=== PATIENT | female | born 1985 | race Asian ===

== ENCOUNTER 2017-09-16 04:35 | Inpatient (IN) | payer SELFPAY ==
[~2017-09-16] VITALS: Ht 162.6 cm; Wt 64.4 kg
[2017-09-16] MEDS ORDERED: LACTATED RINGERS 1,000 ML IV SCH (05:28)
[2017-09-16] MEDS ORDERED: CITRIC ACID/SODIUM CITRATE 30 ML UDC PO ONE (05:30)
[2017-09-16 06:25] LABS: APPEARANCE,URINE HAZY (CLEAR); BILIRUBIN,URINE NEGATIVE (NEGATIVE); BLOOD, URINE NEGATIVE (NEGATIVE); COLOR,URINE YELLOW (YELLOW); LEUKOCYTE ESTERASE ,URINE NEGATIVE (NEGATIVE); NITRITE, URINE NEGATIVE (NEGATIVE); UGLUCOSE NEGATIVE (NEGATIVE)
[2017-09-16 06:28] LABS: BASOPHILS # (AUTO) 0.1 K/uL (0.00-0.22); BASOPHILS % (AUTO) 0.9 % (0.0-2.0); EOSINOPHILS # (AUTO) 0.1 K/uL (0-0.4); EOSINOPHILS % (AUTO) 0.8 % (0.0-4.0); HEMATOCRIT 37.4 % (36-48); HEMOGLOBIN 12.2 g/dL (12.0-16.0); LYMPHOCYTES # (AUTO) 1.4 K/uL (2.5-16.5); LYMPHOCYTES % (AUTO) 21.6 % (20.5-51.1); MEAN CORPUSCULAR HEMOGLOBIN 30 pg (27-31); MEAN CORPUSCULAR HGB CONC 33 g/dL (33-37); MEAN CORPUSCULAR VOLUME 91 fL (80-94); MONOCYTES # (AUTO) 0.5 K/uL (0.8-1.0); MONOCYTES % (AUTO) 7.2 % (1.7-9.3); NEUTROPHILS # (AUTO) 4.3 K/uL (1.8-7.7); NEUTROPHILS % (AUTO) 69.5 % (42.2-75.2); PLATELET COUNT (AUTO) 145 K/uL (140-450); RED BLOOD CELL COUNT(AUTO) 4.11 MIL/uL (4.20-5.40); WHITE BLOOD COUNT (AUTO) 6.4 K/uL (4.8-10.8)
[2017-09-16 06:43] LABS: ALBUMIN 2.7 g/dL (3.4-5.0); ANION GAP 11.5 (8-16); CARBON DIOXIDE 26.5 mmol/L (21-32); CREATININE 0.5 mg/dL (0.6-1.3); TOTAL BILIRUBIN 0.2 mg/dL (0.0-1.0)
[2017-09-16] MEDS ORDERED: OXYTOCIN 20 UNITS in LACTATED RINGERS 1,000 ML IV SCH ×2 (06:51→07:12)
[2017-09-16] MEDS ORDERED: oxyCODONE/APAP 5/325 MG 1 TAB TAB PO PRN (06:55)
[2017-09-16] MEDS ORDERED: TRIMETHOBENZAMIDE 200 MG/2 ML SYR IM PRN (06:55)
[2017-09-16] MEDS ORDERED: MEASLES, MUMPS, AND RUBELLA 1 VIAL SQVAC PRN (06:55)
[2017-09-16] MEDS ORDERED: IBUPROFEN 800 MG TAB PO PRN (06:55)
[2017-09-16] MEDS ORDERED: TEMAZEPAM 15 MG CAP PO PRN (06:55)
[2017-09-16] MEDS ORDERED: HYDROcodone/APAP 5/325 MG 1 TAB TAB PO PRN (06:55)
[2017-09-16] MEDS ORDERED: METHYLERGONOVINE 0.2 MG/ML AMP IM PRN (06:55)
[2017-09-16 06:56] LABS: RBC,URINE NONE SEEN /HPF (0-5)
[2017-09-16] MEDS ORDERED: TRIAMCINOLONE 40 MG/ML 5ML VIAL ONE (07:03)
[2017-09-16] MEDS ORDERED: OXYTOCIN 10 UNITS/ML VIAL ONE (07:03)
[2017-09-16] MEDS ORDERED: MORPHINE PRES FREE 10 MG/10 ML AMP IV ONE (07:10)
[2017-09-16] MEDS ORDERED: ceFAZolin 1,000 MG VIAL ONE (07:12)
[2017-09-16] MEDS ORDERED: CITRIC ACID/SODIUM CITRATE 30 ML UDC ONE (07:12)
[2017-09-16] MEDS ORDERED: NALOXONE 0.4 MG/ML VIAL IVP PRN ×2 (07:15)
[2017-09-16] MEDS ORDERED: ONDANSETRON 4 MG/2 ML VIAL IVP PRN (07:15)
[2017-09-16] MEDS ORDERED: diphenhydrAMINE 50 MG/ML VIAL IVP PRN (07:15)
[2017-09-16] MEDS ORDERED: METOCLOPRAMIDE 10 MG/2 ML INJ VIAL IVP SCH (07:30)
[2017-09-16 07:50] VITALS: BP 96/59
[2017-09-16] MEDS ORDERED: PREN-546 PO (07:53)
[2017-09-16] MEDS ORDERED: METF500T PO (07:54)
[2017-09-16] MEDS ORDERED: OXYTOCIN 20 UNITS/LR PREMIX 1,000 ML IV ONE (08:14)
[2017-09-16] MEDS ORDERED: diphenhydrAMINE 50 MG/ML VIAL ONE (08:14)
--- NOTE | 2017-09-16 09:54 | NUR ---
PATIENT HAS BEEN SCREENED AND CATEGORIZED LOW NUTRITION RISK. PATIENT WILL BE SEEN WITHIN 7 DAYS OF ADMISSION. 09/22/[address]
[2017-09-16] MEDS ORDERED: SODIUM PHOSPHATE 118 ML ENEM RC PRN (11:35)
[2017-09-16] MEDS ORDERED: INFLUENZA VIRUS VACCINE QUAD 0.5 ML SYR IMVAC SCH (11:35)
[2017-09-16] MEDS ORDERED: OXYTOCIN 10 UNITS in LACTATED RINGERS 1,000 ML IV SCH (14:41)
[2017-09-16] MEDS: OXYTOCIN 20 UNITS in LACTATED RINGERS 1,000 ML IV SCH ×2 (15:06→21:50)
[2017-09-17 06:08] LABS: BASOPHILS % (AUTO) 0.5 % (0.0-2.0); EOSINOPHILS % (AUTO) 0.6 % (0.0-4.0); HEMATOCRIT 36.3 % (36-48); HEMOGLOBIN 12.3 g/dL (12.0-16.0); LYMPHOCYTES # (AUTO) 0.8 K/uL (2.5-16.5); LYMPHOCYTES % (AUTO) 9.7 % (20.5-51.1); MEAN CORPUSCULAR HEMOGLOBIN 30 pg (27-31); MEAN CORPUSCULAR HGB CONC 34 g/dL (33-37); MEAN CORPUSCULAR VOLUME 90 fL (80-94); MONOCYTES # (AUTO) 0.7 K/uL (0.8-1.0); MONOCYTES % (AUTO) 8.2 % (1.7-9.3); NEUTROPHILS # (AUTO) 6.5 K/uL (1.8-7.7); PLATELET COUNT (AUTO) 142 K/uL (140-450); RED BLOOD CELL COUNT(AUTO) 4.05 MIL/uL (4.20-5.40); RED CELL DISTRIBUTION WIDTH 14.7 % (11.6-13.7)
[2017-09-17 19:56] LABS: RAPID PLASMA REAGIN NON-REACTIVE (Non Reactiv)
[2017-09-17] MEDS: SIMETHICONE 80 MG TAB.CHEW PO PRN (20:52)
[2017-09-17] MEDS: DOCUSATE SOD/SENNA 50/8.6 MG 1 TAB PO SCH (20:52)
[2017-09-17] MEDS ORDERED: INFLUENZA VIRUS VACCINE QUAD 0.5 ML SYR IMVAC SCH (21:15)
[2017-09-18] MEDS: DOCUSATE SOD/SENNA 50/8.6 MG 1 TAB PO SCH (22:08)
[2017-09-18] MEDS: SIMETHICONE 80 MG TAB.CHEW PO PRN (22:09)
[2017-09-20] MEDS ORDERED: INFLUENZA VIRUS VACCINE QUAD 0.5 ML SYR IMVAC SCH (04:00)
== END 2017-09-19 15:15 | disposition home or self-care (01) | DRG 766 ==
LOC: MLD 04:35 → MFCC 09:30
PROVIDERS: ADMIT Obstetrics & Gynecology; ATTEND Obstetrics & Gynecology
PROC: 10D00Z1 Extraction of Products of Conception, Low, Open Approach (ICD-10-PCS; principal; 2017-09-16 07:00)
PROC: 3E0234Z Introduction of Serum, Toxoid and Vaccine into Muscle, Percutaneous Approach (ICD-10-PCS; 2017-09-17)
PROC: 3E0234Z Introduction of Serum, Toxoid and Vaccine into Muscle, Percutaneous Approach (ICD-10-PCS; 2017-09-17)
PROC: 3E0234Z Introduction of Serum, Toxoid and Vaccine into Muscle, Percutaneous Approach (ICD-10-PCS; 2017-09-17)
DX: O34.211 Maternal care for low transverse scar from previous cesarean delivery (principal); O24.425 Gestational diabetes mellitus in childbirth, controlled by oral hypoglycemic drugs; O89.4 Spinal and epidural anesthesia-induced headache during the puerperium; Z37.0 Single live birth; Z3A.40 40 weeks gestation of pregnancy; Z23 Encounter for immunization
CPT/HCPCS: 36415; 80053; 81001; 82948; 85025; 86592; 86886; 86900; 86901; 87086; 90658; 90707; 90715; J0690; J1200; J2270; J2590; J3301; J7060; J7120